=== PATIENT | female | born 1995 | race American Indian/Alaskan Native ===

== ENCOUNTER 2017-08-06 10:58 | Day surgery (SDC) | payer MEDICAID ==
[2017-08-06] MEDS ORDERED: NACL BACTERIOSTATIC INFILTRATI ONE (11:47)
--- NOTE | 2017-08-06 11:55 | Anesthesia Consultation ---
Anesthesia Consult and Med Hx Date of service: 08/06/17 - Airway Anesthetic Teeth Evaluation: Good ROM Head & Neck: Adequate Mental/Hyoid Distance: Adequate Mallampati Class: Class I Intubation Access Assessment: Good - Pulmonary Exam CTA: Yes - Cardiac Exam Cardiac Exam: RRR - Pre-Operative Health Status ASA Pre-Surgery Classification: ASA1 Proposed Anesthetic Plan: General - Central Nervous System Hx Psychiatric Problems: No - Other Systems Hx Alcohol Use: No Hx Substance Use: No Hx Cancer: No
--- NOTE | 2017-08-06 11:55 | Anesthesia Day of Surgery ---
Anesthesia Day of Surgery - Day of Surgery Patient Examined: Yes Patient H&P Reviewed: Yes Patient is NPO: Yes
[2017-08-06] MEDS ORDERED: LACTATED RINGERS 1,000 ML IV SCH (12:00)
[2017-08-06] MEDS ORDERED: ANCEF/STERILE WATER 2 GM/20 ML IV NR (12:00)
[2017-08-06] MEDS ORDERED: VERSED IV NR (12:00)
[2017-08-06 12:18] LABS: Basophils % (Auto) 0.7 % (0.0-1.8); Eosinophils # (Auto) 0.1 K/mm3 (0.0-0.4); Eosinophils % (Auto) 1.6 % (0.0-4.3); Hematocrit 39.2 % (30.3-42.9); Hemoglobin 12.5 gm/dl (10.1-14.3); Lymphocytes % (Auto) 32.3 % (13.4-35.0); Mean Corpuscular HGB Conc 32 % (30-34); Mean Corpuscular Hemoglobin 28 pg (28-32); Mean Corpuscular Volume 86 fl (79-97); Monocytes # (Auto) 0.5 K/mm3 (0.0-0.8); Monocytes % (Auto) 7.6 % (0.0-7.3); Platelet Count 330 K/mm3 (140-440); Red Blood Count 4.55 M/mm3 (3.65-5.03); Red Cell Distribution Width 14.7 % (13.2-15.2)
[2017-08-06] MEDS ORDERED: DIPRIVAN 10 MG/ML IV ONE (14:49)
[2017-08-06] MEDS ORDERED: SUBLIMAZE ONE (14:57)
[2017-08-06] MEDS ORDERED: XYLOCAINE MPF 2% ONE (14:57)
[2017-08-06] MEDS ORDERED: NACL 0.9% IR ONE (15:15)
[2017-08-06] MEDS ORDERED: DILAUDID ONE (15:45)
[2017-08-06] MEDS ORDERED: DECADRON ONE (17:14)
[2017-08-06] MEDS ORDERED: ZOFRAN ONE (17:14)
[2017-08-06] MEDS ORDERED: NACL 0.9% 1000 ML 1,000 ML ONE (17:15)
[2017-08-06] MEDS: DILAUDID IV PRN ×2 (17:54→18:05)
--- NOTE | 2017-08-06 19:05 | Operative Report ---
PREOPERATIVE DIAGNOSIS: Macromastia. POSTOPERATIVE DIAGNOSIS: Macromastia. PROCEDURE: Bilateral reduction mammoplasty. SURGEON: Shahram Bauman M.D. RAG SHREDDER: Gorge Reyez CSA. FINDINGS: Right breast 1500 grams removed and left breast 800 grams removed. DESCRIPTION OF PROCEDURE: The patient was brought to the operating room and placed on the table in supine position. Following administration of general anesthesia, bilateral breasts were prepped with Betadine solution, draped in usual sterile manner. A #10 blade scalpel was used to make a circumareolar skin incision followed by de-epithelization of inferior dermal pedicle. Modified Hill pattern skin markings were incised with scalpel, deepened through subcutaneous fat and breast tissue using electrocautery. Skin flaps were raised in standard manner as was fashioning of an inferior central mound pedicle. Breast tissue was resected and sent to pathology as specimen. Hemostasis controlled using electrocautery. Skin closure was performed over 10-mm Ronnie drain using interrupted and running subcuticular 2-0 Monocryl sutures. Mastisol, Steri-Strips, and sterile dressings applied. The patient tolerated the procedure well and returned to recovery room in stable condition. JOB# [id number] FTW/NTS
[2017-08-06 22:31] VITALS: BP 130/95
== END 2017-08-06 10:59 | disposition home or self-care (01) ==
LOC: OR 10:58
PROVIDERS: ATTEND Plastic Surgery
DX: N62 Hypertrophy of breast (principal); Z79.899 Other long term (current) drug therapy
CPT/HCPCS: 19318; 36415; 81025; 85025; 88305; J0690; J1100; J1170; J2250; J2405; J2704; J3010; J7030; J7120